=== PATIENT | male | born 1995 | race African-American/Black ===

== ENCOUNTER 2021-07-26 17:20 | Emergency (ER) | payer OTHER ==
[2021-07-26 17:39] VITALS: BP 124/82; PULSE 89; TEMP 98; BMI 24.0
[2021-07-26 18:38] LABS: URINE APPEARANCE CLEAR; URINE BILIRUBIN NEGATIVE (NEGATIVE); URINE COLOR YELLOW; URINE GLUCOSE (UA) NEGATIVE (NEGATIVE); URINE KETONE NEGATIVE (NEGATIVE); URINE LEUK ESTERASE NEGATIVE (NEGATIVE); URINE NITRITE NEGATIVE (NEGATIVE); URINE PROTEIN NEGATIVE (NEGATIVE); URINE UROBILINOGEN 0.2 mg/dL (0.2-1.0)
[2021-07-26 19:33] LABS: SYPHILIS W/ RPR CONF NON-REACTIVE (NONREACTIVE)
[2021-07-26 20:02] LABS: HIV INTERPRETATION NEGATIVE (NEGATIVE)
== END 2021-07-26 20:44 | disposition home or self-care (01) ==
LOC: JERFT 17:20
PROC: 3E023GC Introduction of Other Therapeutic Substance into Muscle, Percutaneous Approach (ICD-10-PCS; principal; 2021-07-26)
DX: A63.0 Anogenital (venereal) warts (principal); R30.0 Dysuria
CPT/HCPCS: 36415; 81003; 86694; 86695; 86696; 86780; 87086; 87389; 87491; 87591; 99284-25

== ENCOUNTER 2021-08-01 17:23 | Emergency (ER) | payer OTHER ==
[2021-08-01 17:48] VITALS: BP 114/78; PULSE 77; TEMP 98.2; BMI 24.0
== END 2021-08-01 18:47 | disposition home or self-care (01) ==
LOC: JER 17:23 → JERFT 17:23
DX: A60.01 Herpesviral infection of penis (principal)
CPT/HCPCS: 99281-25